=== PATIENT | female | born 1980 | race Asian ===

== ENCOUNTER 2022-02-10 14:19 | Outpatient (REF) | payer OTHER, SELFPAY ==
--- NOTE | ~2022-02-10 | XR_ITS ---
EXAMINATION: XR CHEST CLINICAL INFORMATION: Cough. Assess for pneumonia. COMPARISON: None TECHNIQUE: 2 views of the chest were obtained. FINDINGS: Clear lungs. No airspace consolidation or ground-glass opacity. Heart size normal. Costophrenic sulci are clear. The hilar and mediastinal contours and visualized bony structures are unremarkable. XR/XR chest 2V IMPRESSION: Unremarkable examination.
== END 2022-02-10 14:20 | disposition home or self-care (01) ==
LOC: HO.XRAY 14:19
PROVIDERS: Visit Provider Nurse Practitioner Family
DX: R05.9 Cough, unspecified (principal)
CPT/HCPCS: 71046